=== PATIENT | female | born 1980 | race Caucasian/White ===

== ENCOUNTER 2016-06-09 17:20 | Outpatient (CLI) | payer BC ==
[~2016-06-09] VITALS: Ht 162.6 cm; Wt 93.2 kg
[~2016-06-09 17:20] MED LIST: CHILDREN'S ASPI81 M1 PO; MOTRIN800 MG PO; NORCO 5/3251 TABLET PO; PRENATAL TABLE1 EAC3 PO
[2016-06-09 18:49] LABS: HEMATOCRIT 40.5 % (36.0-46.0); MCH 33.8 PG (29.0-34.0); MCHC 33.6 G/DL (30.0-36.0); MCV 100.7 FL (83-99); MEAN PLAT.VOLUME 10.4 uM^3 (9.5-12.4); PLATELET COUNT 235 K/uL (156-360); RBC DIS.WIDTH-CV 12.8 % (11.8-14.6); RBC DIS.WIDTH-SD 47.7 % (39-53); RED BLOOD COUNT 4.02 M/uL (3.80-5.20); WHITE BLOOD COUNT 11.1 K/uL (4.1-10.2)
[2016-06-09 19:09] LABS: CHLORIDE 109 mEq/L (99-109); POTASSIUM 3.8 mEq/L (3.7-5.4); SODIUM 138 mEq/L (136-147)
[2016-06-09 19:11] LABS: GLUCOSE 91 mg/dL (70-99)
[2016-06-09 19:12] LABS: ADD MIUA? NO; BILIRUBIN NEGATIVE; BLOOD NEGATIVE; COLOR YELLOW ((YELLOW)); GLUCOSE (STRIP) NEGATIVE; KETONES 5; LEUKOCYTES NEGATIVE; NITRITE NEGATIVE; PROTEIN (STRIP) NEGATIVE; SPECIFIC GRAVITY 1.009 (1.000-1.030); UROBILINOGEN 0.2 MG/DL (0.2-1.0)
[2016-06-09 19:12] LABS: ANION GAP 9 MEQ/L (2-14)
[2016-06-09 19:15] LABS: GFR ESTIMATE (CALCULATED) > 59 mL/min/
[2016-06-09 19:16] LABS: TROP-I INTERPRETATION NEGATIVE; TROPONIN-I < 0.01 ng/mL (0.0-0.30); UREA NITROGEN (BUN) 9 mg/dL (9-23)
[2016-06-09 22:05] LABS: TROP-I INTERPRETATION NEGATIVE; TROPONIN-I < 0.01 ng/mL (0.0-0.30)
[2016-06-09 23:05] VITALS: BP 123/73
[2016-06-09] MEDS ORDERED: ASPIR 8181 M1 PO (23:20)
[2016-06-09 23:22] VITALS: BP 121/70
== END 2016-06-10 00:30 | disposition home or self-care (01) ==
LOC: EME 17:20 → LDRP-OP 17:20 → EDSTATUS 22:44 → 2WEST 22:45
PROVIDERS: Nurse Practitioner Family
DX: O13.2 Gestational [pregnancy-induced] hypertension without significant proteinuria, second trimester (principal); O99.282 Endocrine, nutritional and metabolic diseases complicating pregnancy, second trimester; O99.89 Other specified diseases and conditions complicating pregnancy, childbirth and the puerperium; Z3A.22 22 weeks gestation of pregnancy; E86.0 Dehydration; R07.89 Other chest pain; R10.9 Unspecified abdominal pain
CPT/HCPCS: 59025; 71020; 76805; 80048; 81003; 84484; 85027; 93005; 99281; 99285; G0378; J7120

== ENCOUNTER 2016-10-04 22:41 | Inpatient (IN) | payer BC ==
[~2016-10-04] VITALS: Ht 162.6 cm; Wt 103.2 kg
[~2016-10-04 22:41] MED LIST changes: +ASPIR 8181 M1 PO
[2016-10-04 23:01] VITALS: BP 144/70
[2016-10-04 23:10] VITALS: BP 149/94
[2016-10-05] VITALS (9 sets, daily range): BP systolic 110–174; BP diastolic 62–112
[2016-10-05 00:08] LABS: EOSINOPHIL (%) 0 % (0-5); HEMATOCRIT 36.8 % (36.0-46.0); IMMATURE GRANULOCYTE (%) 0.6 % (0.0-0.7); IMMATURE GRANULOCYTE COUNT 0.1 K/uL; LYMPHOCYTE COUNT 2.8 K/uL (1.0-2.8); MCH 35.8 PG (29.0-34.0); MCHC 35.6 G/DL (30.0-36.0); MCV 100.5 FL (83-99); MEAN PLAT.VOLUME 11.5 uM^3 (9.5-12.4); MONOCYTE (%) 5.8 % (3-12); MONOCYTE COUNT 0.7 K/uL (0-0.8); NEUTROPHIL (%) 71.6 % (45-76); PLATELET COUNT 174 K/uL (156-360); RBC DIS.WIDTH-CV 12.7 % (11.8-14.6); RBC DIS.WIDTH-SD 46.7 % (39-53); RED BLOOD COUNT 3.66 M/uL (3.80-5.20); WHITE BLOOD COUNT 12.5 K/uL (4.1-10.2)
[2016-10-05] MEDS ORDERED: IBUPROFEN800 MG PO (01:31)
[2016-10-06 07:54] VITALS: BP 138/81
== END 2016-10-06 13:39 | disposition home or self-care (01) | DRG 775 ==
LOC: LDRP-OP 22:41 → 2WEST 22:42 → LDRP-OP 11-11 00:44
PROVIDERS: Advanced Practice Midwife
PROC: 0HQ9XZZ Repair Perineum Skin, External Approach (ICD-10-PCS; principal; 2016-10-05)
PROC: 10907ZC Drainage of Amniotic Fluid, Therapeutic from Products of Conception, Via Natural or Artificial Opening (ICD-10-PCS; principal; 2016-10-05)
PROC: 10E0XZZ Delivery of Products of Conception, External Approach (ICD-10-PCS; principal; 2016-10-05)
DX: O70.0 First degree perineal laceration during delivery (principal); O99.344 Other mental disorders complicating childbirth; Z3A.39 39 weeks gestation of pregnancy; Z37.0 Single live birth; F41.9 Anxiety disorder, unspecified; O99.214 Obesity complicating childbirth; E66.9 Obesity, unspecified; Z68.33 Body mass index [BMI] 33.0-33.9, adult; O62.3 Precipitate labor; O77.0 Labor and delivery complicated by meconium in amniotic fluid
CPT/HCPCS: 85025; G0378; J0595; J7120